=== PATIENT | female | born 1960 | race Caucasian/White ===

== ENCOUNTER 2024-08-18 09:45 | Outpatient (CLI) | payer OTHER, SELFPAY ==
--- NOTE | 2024-08-18 | ECG_ITS ---
Test Date: 2024-08-18 10:25:50 Measurements Intervals [place] Rate: 59 P: 48 ID: [id number] QRS: 33 QRSD: 90 T: 37 QT: 427 QTc: 424 Interpretive Statements SINUS BRADYCARDIA No previous ECG available for comparison Electronically Signed On 08-18-2024 13:09:15 [employer] by Noe Dee M.D.
== END 2024-08-18 09:46 | disposition home or self-care (01) ==
LOC: ANHLAB 09:55
PROVIDERS: PCP Obstetrics & Gynecology Gynecology; Visit Provider Obstetrics & Gynecology Gynecology
DX: Z01.818 Encounter for other preprocedural examination (principal); R00.1 Bradycardia, unspecified
CPT/HCPCS: 93005